=== PATIENT | male | born 1965 | race Caucasian/White ===

== ENCOUNTER 2016-07-13 20:08 | Emergency (ER) | payer MEDICAID ==
[~2016-07-13] VITALS: Ht 180.3 cm; Wt 87.4 kg
[2016-07-13 20:18] VITALS: BP 106/60
[2016-07-13] MEDS ORDERED: SODIUM CHLORIDE 0.9% 1,000 ML IV ONE (20:33)
[2016-07-13] MEDS ORDERED: LORazepam 2 MG/ML, 1ML IVPush ONE (21:00)
[2016-07-13] MEDS ORDERED: ONDANSETRON ODT 4 MG PO ONE (21:00)
[2016-07-13] MEDS ORDERED: SODIUM CHLORIDE 0.9% 1,000ML IVBOLUS ONE (21:00)
== END 2016-07-13 21:59 | disposition left against medical advice (07) ==
LOC: ED 21:53
DX: R10.9 Unspecified abdominal pain (principal); R51 Headache
CPT/HCPCS: 99281

== ENCOUNTER 2016-09-08 07:54 | Inpatient (IN) | payer MEDICAID ==
[~2016-09-08] VITALS: Ht 180.3 cm; Wt 71.7 kg
[2016-09-08] MEDS ORDERED: SODIUM CHLORIDE 0.9% 1,000ML IVBOLUS ONE ×3 (08:30→13:00)
[2016-09-08] MEDS ORDERED: AZITHROMYCIN 500 MG TABLET PO ONE (08:30)
[2016-09-08] MEDS ORDERED: ONDANSETRON 2MG/ML, 2ML IVPush ONE (08:30)
[2016-09-08] MEDS ORDERED: SODIUM CHLORIDE FLUSH 10ML SYR IVF ONE (08:30)
[2016-09-08] MEDS ORDERED: CIPROFLOXACIN/PMX 400MG/200ML 200 ML IVPB ONE (08:30)
[2016-09-08] MEDS ORDERED: CEFTRIAXONE 250 MG IM ONE (08:30)
[2016-09-08 08:44] LABS: BLOOD UREA NITROGEN 15 mg/dL (7-18)
[2016-09-08] MEDS ORDERED: CIPROFLOXACIN/PMX 400MG/200ML 200 ML ONE (08:50)
[2016-09-08] MEDS ORDERED: MORPHINE SULFATE 4 MG/ML, 1ML ONE ×2 (08:50→09:41)
[2016-09-08] MEDS ORDERED: ONDANSETRON 2MG/ML, 2ML ONE (08:51)
[2016-09-08] MEDS ORDERED: AZITHROMYCIN 250 MG TABLET ONE (08:51)
[2016-09-08] MEDS: MORPHINE SULFATE 4 MG/ML, 1ML IVPush PRN ×2 (08:59→09:48)
[2016-09-08] MEDS ORDERED: CEFTRIAXONE 250 MG ONE (09:39)
[2016-09-08] MEDS ORDERED: LIDOCAINE 1%, 20ML ONE (09:42)
[2016-09-08 11:31] LABS: PATH.CAST-FLAG NOT PRESENT; SPERM-FLAG NOT PRESENT; SRC-FLAG NOT PRESENT; XTAL-FLAG NOT PRESENT; YLC-FLAG NOT PRESENT
[2016-09-08] MEDS ORDERED: PIPERACILLIN/TAZO 3.375 GM in SODIUM CHLORIDE 0.9% 50 ML IV ONE (13:00)
[2016-09-08] MEDS ORDERED: VANCOMYCIN 1,700 MG in SODIUM CHLORIDE 0.9% 250 ML IV ONE (13:00)
[2016-09-08] MEDS ORDERED: VANCOMYCIN PER PHARMACY MC PRN ×2 (13:00→14:00)
[2016-09-08] MEDS ORDERED: ONDANSETRON 2MG/ML, 2ML IVPush PRN (14:00)
[2016-09-08] MEDS ORDERED: ONDANSETRON ODT 4 MG PO PRN (14:00)
[2016-09-08] MEDS ORDERED: PHARMACY MAY ADJ FOR RENAL FX MC PRN (14:00)
[2016-09-08] MEDS ORDERED: POLYETHYLENE GLYCOL 17 GM PACKET PO PRN (14:00)
[2016-09-08] MEDS ORDERED: DOCUSATE 100 MG CAPSULE PO PRN (14:00)
[2016-09-08] MEDS ORDERED: BISACODYL 10 MG SUPP PR PRN (14:00)
[2016-09-08] MEDS ORDERED: morphine SULFATE 10 MG/ML, 1ML IVPush PRN (14:00)
[2016-09-08] MEDS: ENOXAPARIN 40 MG/0.4 ML SQ SCH (14:00)
[2016-09-08] MEDS ORDERED: OMNIPAQUE 350 MG/ML, 100ML BOTTLE ONE (14:07)
[2016-09-08 15:47] VITALS: BP 117/79
[2016-09-08] MEDS: POTASSIUM CHLORIDE 10 MEQ in SODIUM CHLORIDE 0.9% 1,000 ML IV SCH (17:53)
[2016-09-08 19:46] VITALS: BP 118/75
[2016-09-08] MEDS: NICOTINE 14MG/24 HR PATCH.TD24 TD SCH (20:00)
[2016-09-08] MEDS: HYDROcodone/APAP 5/325 TABLET PO PRN (20:32)
[2016-09-08] MEDS: PIPERACILLIN/TAZO 3.375 GM in SODIUM CHLORIDE 0.9% 50 ML IV SCH (20:32)
[2016-09-09 01:41] VITALS: BP 100/64
[2016-09-09] MEDS: VANCOMYCIN 1,700 MG in SODIUM CHLORIDE 0.9% 250 ML IV SCH ×2 (03:14→16:02)
[2016-09-09] MEDS: PIPERACILLIN/TAZO 3.375 GM in SODIUM CHLORIDE 0.9% 50 ML IV SCH ×3 (04:48→22:03)
[2016-09-09 05:06] LABS: BLOOD UREA NITROGEN 12 mg/dL (7-18)
[2016-09-09 07:55] VITALS: BP 120/73
[2016-09-09] MEDS: POTASSIUM CHLORIDE 10 MEQ in SODIUM CHLORIDE 0.9% 1,000 ML IV SCH (08:00)
[2016-09-09 09:45] LABS: HEPATITIS C VIRUS ANTIBODY Reactive (Nonreactive)
[2016-09-09 13:28] VITALS: BP 124/70
[2016-09-09] MEDS: ENOXAPARIN 40 MG/0.4 ML SQ SCH (14:00)
[2016-09-09 19:39] VITALS: BP 125/77
[2016-09-09] MEDS: NICOTINE 14MG/24 HR PATCH.TD24 TD SCH (20:00)
[2016-09-10] MEDS: POTASSIUM CHLORIDE 10 MEQ in SODIUM CHLORIDE 0.9% 1,000 ML IV SCH (01:35)
[2016-09-10 02:21] VITALS: BP 117/70
[2016-09-10] MEDS: HYDROcodone/APAP 5/325 TABLET PO PRN (02:47)
[2016-09-10] MEDS: VANCOMYCIN 1,700 MG in SODIUM CHLORIDE 0.9% 250 ML IV SCH (04:05)
[2016-09-10] MEDS: PIPERACILLIN/TAZO 3.375 GM in SODIUM CHLORIDE 0.9% 50 ML IV SCH (06:28)
[2016-09-10 07:06] VITALS: BP 132/79
[2016-09-10 12:21] VITALS: BP_SYST 111; BP_SYST 146; BP_DIAS 72; BP_DIAS 90
== END 2016-09-10 14:19 | disposition left against medical advice (07) | DRG 728 ==
LOC: ED 07:55 → EDIP 12:35 → 3NE 15:16
PROVIDERS: ADMIT Internal Medicine; ATTEND Internal Medicine
DX: N45.3 Epididymo-orchitis (principal); N30.01 Acute cystitis with hematuria; F15.10 Other stimulant abuse, uncomplicated; R53.81 Other malaise; F17.210 Nicotine dependence, cigarettes, uncomplicated; Z20.5 Contact with and (suspected) exposure to viral hepatitis
CPT/HCPCS: 36415; 74177; 80048; 80074; 81001; 82040; 83605; 84145; 85025; 87040; 87077; 87086; 87186; 87491; 87521; 87536; 87591; 96365; 96375; 96376; J0696; J0744; J2405; J2543; J3370; J3480; Q9967; J2270; J7030; J7050

== ENCOUNTER 2016-09-13 07:11 | Emergency (ER) | payer MEDICAID ==
[~2016-09-13] VITALS: Ht 177.8 cm; Wt 79.5 kg
[2016-09-13 07:11] VITALS: BP 119/75
== END 2016-09-13 08:31 | disposition home or self-care (01) ==
LOC: ED 08:06
DX: N45.3 Epididymo-orchitis (principal); Z76.0 Encounter for issue of repeat prescription; F15.10 Other stimulant abuse, uncomplicated
CPT/HCPCS: 99283

== ENCOUNTER 2016-12-03 22:49 | Emergency (ER) | payer MEDICAID, OTHER ==
[~2016-12-03] VITALS: Ht 177.8 cm; Wt 79.5 kg
[2016-12-03 22:53] VITALS: BP 109/75
[2016-12-03] MEDS ORDERED: ACETAMINOPHEN 325 MG TABLET ONE (23:39)
[2016-12-04] MEDS ORDERED: ACETAMINOPHEN 325 MG TABLET PO ONE
== END 2016-12-03 23:59 | disposition home or self-care (01) ==
LOC: ED 23:20
DX: S53.431A Radial collateral ligament sprain of right elbow, initial encounter (principal); S63.511A Sprain of carpal joint of right wrist, initial encounter; X58.XXXA Exposure to other specified factors, initial encounter; Y93.89 Activity, other specified; Y92.009 Unspecified place in unspecified non-institutional (private) residence as the place of occurrence of the external cause; Y99.8 Other external cause status
CPT/HCPCS: 29125